=== PATIENT | male | born 1940 | race Caucasian/White ===

== ENCOUNTER 2021-08-05 08:02 | Outpatient (CLI) | payer MEDICARE, BC | END 2021-08-05 23:59 | disposition home or self-care (01) | LOC: LAB 08:02 | PROVIDERS: ATTEND Specialist | DX: Z01.812 Encounter for preprocedural laboratory examination (principal); Z20.822 Contact with and (suspected) exposure to COVID-19 | CPT/HCPCS: C9803; U0003 ==

== ENCOUNTER 2021-08-09 06:50 | Inpatient (IN) | payer MEDICARE, BC ==
[~2021-08-09] VITALS: Ht 172.7 cm; Wt 79.4 kg
--- NOTE | 2021-08-09 07:50 | NUR ---
RN NOTES PATIENT IS IN ROOM, PATIENT CAME IN TO UNIT AMBULATING. A/O X4. NO S/S OF PAIN NOTED AT THIS TIME. ON ROOM AIR, NO DISTRESS OR SHORTNESS OF BREATH NOTED. IV ACCESS R ARM #22G, INTACT AND PATENT, FLUSHING WELL. PATIENT WAS ORIENTED TO ROOM SET UP AND HOW TO USE CALL LIGHT. CONSENTS FOR SURGERY WAS DONE. FALL AND SAFETY MEASURES IN PLACE, BED IN LOW AND LOCK POSITION, CALL LIGHT AND TABLE WITHIN EASY REACH, SIDE RAIL UP X2. WILL CONTINUE TO MONITOR.
[2021-08-09] MEDS ORDERED: POLYMYXIN B SULFATE 500,000 UNITS ONE (08:20)
[2021-08-09] MEDS ORDERED: ANESTHESIA TRAY IN PYXIS 1 EA TRAY MC ONE (08:20)
[2021-08-09] MEDS ORDERED: BUPIVACAINE 0.25% 75 MG/30 ML VIAL ONE (08:21)
[2021-08-09] MEDS ORDERED: LIDOCAINE 0.5%-EPI 1:200,000 50 ML VIAL ONE (08:21)
--- NOTE | 2021-08-09 09:00 | NUR ---
RN NOTES PATIENT IS NOT IN ROOM, PATIENT WAS TAKEN DOWN FOR SURGERY (LEFT TOTAL KNEE ARTHROPLASTY).
[2021-08-09] MEDS ORDERED: MIDAZOLAM HCL 2 MG/2ML VIAL ONE (09:08)
[2021-08-09] MEDS ORDERED: PROPOFOL 100 ML ONE (09:08)
[2021-08-09] MEDS ORDERED: FENTANYL PF 100MCG/2ML AMPUL ONE (09:08)
[2021-08-09] MEDS ORDERED: MAGNESIUM HYDROXIDE 30 ML UDC PO PRN (09:30)
[2021-08-09] MEDS ORDERED: MAG HYDROX/AL HYDROX/SIMETH 30 ML UDC PO PRN (09:30)
[2021-08-09] MEDS ORDERED: diphenhydrAMINE HCL 25 MG CAPSULE PO PRN (09:30)
[2021-08-09] MEDS ORDERED: MENTHOL/CETYLPYRD (CEPACOL) 1 LOZ LOZENGE PO PRN (09:30)
[2021-08-09] MEDS ORDERED: oxyCODONE IR immediate release 5 MG PO PRN (09:30)
[2021-08-09] MEDS ORDERED: TRANEXAMIC ACID 3,000 MG in SODIUM CHLORIDE IRRIG SOLUTION 70 ML IR ONE (10:00)
[2021-08-09] MEDS ORDERED: HYDROMORPHONE 1 MG/1 ML DISP.SYRIN ONE ×2 (11:27→11:50)
[2021-08-09] MEDS ORDERED: ONDANSETRON HCL/PF 4 MG/2 ML VIAL IVP PRN (12:30)
[2021-08-09] MEDS ORDERED: SENNOSIDES 8.6 MG TABLET PO PRN (12:30)
[2021-08-09] MEDS ORDERED: ZOLPIDEM TARTRATE 5 MG TABLET PO PRN (12:30)
[2021-08-09] MEDS ORDERED: BISACODYL SUPP (10 MG) 10 MG/SUPP.RECT SUPP.RECT RC PRN (12:30)
[2021-08-09] MEDS ORDERED: IV LR 1000 ML 1,000 ML IV PRN (12:30)
[2021-08-09] MEDS: oxyCODONE IR immediate release 5 MG PO PRN ×4 (13:57→22:20)
[2021-08-09] MEDS: ONDANSETRON HCL/PF 4 MG/2 ML VIAL IV PRN ×2 (14:34→14:55)
--- NOTE | 2021-08-09 14:55 | NUR ---
RN NOTES PATIENT WAS COMPLAINING OF NAUSEA. ZOFRAN WAS GOING TO BE GIVEN BUT PATIENT REFUSED MEDICATION AT THE LAST MINUTE. ZOFRAN WAS NOT GIVEN. MEDICATION WAS DISCARDED. CHARGE NURSE AWARE.
[2021-08-09] MEDS: HYDROMORPHONE 1 MG/1 ML DISP.SYRIN IM/IV/SC PRN ×2 (15:59→21:00)
[2021-08-09] MEDS ORDERED: DOCUSATE SODIUM 250 MG CAPSULE PO PRN (17:00)
[2021-08-09] MEDS: ANCEF 1 GM/50 ML D5W IV SCH (18:29)
--- NOTE | 2021-08-09 19:49 | NUR ---
RN CLOSING NOTES PATIENT IS AWAKE IN BED RESTING, A/O X4. NO S/S OF PAIN NOTED AT THIS TIME. ON ROOM AIR, NO DISTRESS OR SHORTNESS OF BREATH NOTED. IV ACCESS R FOREARM #22G, INTACT AND PATENT, FLUSHING WELL. PATIENT HAVE VELAZQUEZ CATH, IN PLACE AND DRAINING WELL. FALL AND SAFETY MEASURES IN PLACE, BED ALARM ON, BED IN LOW AND LOCK POSITION, CALL LIGHT AND TABLE WITHIN EASY REACH, SIDE RAIL UP X2. WILL ENDORSE TO PERMIT SPECIALIST.
[2021-08-09 20:00] VITALS: BP 143/78
[2021-08-09] MEDS: TAMSULOSIN 0.4 MG CAP.SR.24H PO SCH (21:02)
[2021-08-09] MEDS: FAMOTIDINE (20 MG) 20 MG TABLET PO SCH (21:02)
[2021-08-09] MEDS: DRONABINOL (2.5 MG) 2.5 MG CAPSULE PO SCH (21:30)
[2021-08-10] MEDS: HYDROMORPHONE 1 MG/1 ML DISP.SYRIN IM/IV/SC PRN ×5 (01:46→11:20)
[2021-08-10] MEDS: ANCEF 1 GM/50 ML D5W IV SCH (02:03)
--- NOTE | 2021-08-10 02:24 | NUR ---
MS RN NOTE PATIENT GIVEN DILAUDID TWICE AND IT IS NOT SHOWING/REGISTERING ON THE COMPUTER. I GOT NADJA RN AND KSENIA BEE FOR WITNESSES. FIRST DOSE OF DILAUDID 0.5 MG WAS ADMINISTERED AT AROUND 2100 AND SECOND DOSE OF DILAUDID 0.5 MG WAS ADMINISTERED AT 0146. BOTH MEDICATIONS WAS SCANNED BUT FOR SOME REASON DOES NOT SHOW UP ON THE ADMINISTRATION HISTORY NOT UNLESS MANUALLY PUT IN.
[2021-08-10 07:21] LABS: HEMOGLOBIN 13.3 g/dL (13.5-17.5)
--- NOTE | 2021-08-10 07:51 | NUR ---
RN CLOSING NOTE REPORT GIVEN TO MICHAEL MCCORMACK FOR CONTINUITY OF CARE.
[2021-08-10 08:00] VITALS: BP 137/80
--- NOTE | 2021-08-10 08:03 | NUR ---
RN OPENING NOTE- PATIENT IS AWAKE IN BED RESTING, A/O X4. PT W HICCUPS. ON ROOM AIR, NO DISTRESS OR SHORTNESS OF BREATH NOTED. IV ACCESS R FOREARM #22G. PATIENT HAS VELAZQUEZ CATH, IN PLACE AND DRAINING WELL. FALL AND SAFETY MEASURES IN PLACE, BED ALARM ON, BED IN LOW AND LOCK POSITION, CALL LIGHT AND TABLE WITHIN EASY REACH, SIDE RAILS UP X2.
[2021-08-10] MEDS: DRONABINOL (2.5 MG) 2.5 MG CAPSULE PO SCH ×2 (08:09→20:26)
--- NOTE | 2021-08-10 08:10 | NUR ---
RN NOTE- DR ROYAL AT BEDSIDE . ORDERED MARINOL 2.5 MG TABLET TO BE GIVEN IMMEDIATELY. DOSE SET FOR 0930. NIGHT TIME DOSE HAD NOT BEEN ADMINISTERED. COMPLYING W INSTRUCTIONS
[2021-08-10] MEDS ORDERED: MAG HYDROX/AL HYDROX/SIMETH 30 ML UDC PO PRN (08:30)
[2021-08-10] MEDS ORDERED: MAGNESIUM HYDROXIDE 30 ML UDC PO PRN (08:30)
[2021-08-10] MEDS ORDERED: Z GUARD REMEDY 4 OZ OINT TP PRN (08:30)
[2021-08-10] MEDS ORDERED: ACETAMINOPHEN 325 MG TABLET PO PRN (08:30)
[2021-08-10] MEDS ORDERED: ONDANSETRON HCL/PF 4 MG/2 ML VIAL IVP PRN (08:30)
[2021-08-10] MEDS: DOCUSATE SODIUM 100 MG CAPSULE PO SCH ×2 (09:39→16:44)
[2021-08-10] MEDS: oxyCODONE IR immediate release 5 MG PO PRN ×4 (09:39→20:25)
[2021-08-10] MEDS: ASPIRIN 325 MG TABLET PO SCH (09:39)
[2021-08-10] MEDS: FAMOTIDINE (20 MG) 20 MG TABLET PO SCH ×2 (09:39→20:26)
--- NOTE | 2021-08-10 10:40 | NUR ---
RN NOTE- FLOEY CATHETER DC'D AT THIS TIME. MONITOR FOR UA OUTPUT
--- NOTE | 2021-08-10 11:28 | NUR ---
RN NOTE- WENT TO ADMINISTER IV DILAUDID 0.5 MG FOR PAIN. PATIENTS IV SITE COMPROMISED. NOTIFIED DR ROYAL AND REQUESTED POSS CHANGE TO PO RX SINCE PT NOVEMBER DC TODAY. DILAUDID 0.5 MG WASTED IN SHARPS Toni CASTRO RN WITNESS.
--- NOTE | 2021-08-10 15:32 | NUR ---
RN NOTE- PT W NO UA OUTPUT. INFORMED HE NEEDS TO VOID BEFORE HE CAN BE DC. WILL GIVE A BIT MORE TIME. PT TOOK FLOMAX LAST PM . CONTINUING TO MONITOR.
[2021-08-10 16:00] VITALS: BP 125/67
--- NOTE | 2021-08-10 16:45 | NUR ---
RN NOTE- PT VOIDED IN URINAL THOUGH ONLY ABOUT 30 CC. BLADDER SCAN COMPLETED BUT HE IS NOT FOUND TO BE RETAINING UA. ENCOURAGED PO FLUIDS
--- NOTE | 2021-08-10 18:52 | NUR ---
RN NOTE- PT VOIDED 50 CC IN URINAL.
--- NOTE | 2021-08-10 18:53 | NUR ---
RN CLOSING NOTE- PT AOX4 IN ROOM,. CURRENT ANALGESICS KEEPING HIM COMFORTABLE, AMBULATES TO BR W FWW STEADY. PO INTAKE FAIR, ENCOURAGING FLUIDS, MONITOR UA OUTPUT, ENDORSE TO NOC SHIFT, SIDE RAILS UP, BED LOCKED CALL LIGHT IN REACH. MONITOR / ASSIST
--- NOTE | 2021-08-10 18:54 | NUR ---
MS RN OPENING NOTE: RECEIVED REPORT. PATIENT IS COMMUNICATIVE, A&O X4 IN NAD AND VSS AT THIS TIME. CONTINUING TO MONITOR PATIENT'S URINARY OUTPUT S/P F/C D/C. EASILY PALPABLE DP PULSES BILATERALLY. BED IN LOW, LOCKED POSITION. SIDE RAILS UP X2. PATIENT DEMONSTRATES ABILITY TO USE CALL LIGHT AND VERBALIZE NEEDS EFFECTIVELY. CALL LIGHT AND FREQUENTLY USED ITEMS WITHIN REACH.
--- NOTE | 2021-08-10 19:01 | NUR ---
RN NOTE- BLADDER SCAN COMPLETED W NOC SHIFT RN. 400 UA NOTED. SHE WILL MONITOR HIS OUTPUT ON HER SHIFT AND INSERT VELAZQUEZ NEEDED,.
[2021-08-10 20:00] VITALS: BP 122/58
[2021-08-10] MEDS: TAMSULOSIN 0.4 MG CAP.SR.24H PO SCH (20:25)
[2021-08-11] MEDS: oxyCODONE IR immediate release 5 MG PO PRN ×2 (00:03→06:11)
--- NOTE | 2021-08-11 01:18 | NUR ---
MS RN NOTE: 175ML OUTPUT TO URINAL CLEAR TEA COLORED URINE. PATIENT STATES THIS IS NORMAL FOR HIM. ADAMANTLY REFUSES F/C. I DISCUSSED THE RISKS ASSOCIATED WITH BLADDER RETENTION INCLUDING UTI, BLADDER AND KIDNEY DAMAGE. PATIENT ACKNOWLEDGES THESE RISKS AND REITERATES REFUSAL FOR F/C REINSERTION.
--- NOTE | 2021-08-11 05:57 | NUR ---
MS RN CLOSING NOTE: PATIENT MAINTAINED ADEQUATE OUTPUT THROUGHOUT THE SHIFT. TOTALLING 425ML IN ADDITION TO VOIDS UP TO BR X2. PATIENT IS STEADY USING FWW. MENTATION TO BASELINE. EASILY PALPABLE DP PULSES AND CAP REFILL < 3 SECONDS. DENIES NUMBNESS/TINGLING TO LLE. LLE SECURED WITH IMMOBILIZER. DRESSING TO INCISION SITE C/D/I. NO IV ACCESS, MD AWARE. PATIENT'S PAIN WELL-CONTROLLED WITH PRN OXYCODONE 10MG PER PRN ORDER AND SCHEDULED DORNABINOL (SEE EMAR). SIDE RAILS UP X2, BED IN LOW/LOCKED POSITION. PATIENT DEMONSTRATES ABILITY TO USE CALL LIGHT AND VERBALIZE NEEDS EFFECTIVELY. CALL LIGHT AND FREQUENTLY USED ITEMS WITHIN REACH.
[2021-08-11 06:48] LABS: BASOPHILS % (AUTO) 0.2 % (0.0-2.0); EOSINOPHILS % (AUTO) 0.1 % (0.0-6.0); HEMATOCRIT 38 % (39-51); HEMOGLOBIN 12.4 g/dL (13.5-17.5); LYMPHOCYTES # (AUTO) 0.7 K/uL (0.8-4.8); LYMPHOCYTES % (AUTO) 5.6 % (20.0-44.0); MEAN CORPUSCULAR HGB CONC 33 g/dl (31.0-36.0); MEAN CORPUSCULAR VOLUME 99 fL (80-96); MONOCYTES # (AUTO) 1.4 K/uL (0.1-1.30); MONOCYTES % (AUTO) 11.4 % (2.0-12.0); NEUTROPHILS % (AUTO) 82.7 % (43.0-81.0); PLATELET COUNT (AUTO) 141 K/uL (150-450); RED BLOOD CELL COUNT(AUTO) 3.78 MIL/uL (4.5-6.0); WHITE BLOOD COUNT (AUTO) 12.1 K/uL (4.3-11.0)
--- NOTE | 2021-08-11 07:34 | NUR ---
RN OPENING NOTE- PATIENT IS AWAKE IN BED RESTING, A/O X4. ON ROOM AIR, NO DISTRESS OR SHORTNESS OF BREATH NOTED. PT VOIDING AND BMS W REGULARITY. DR ROYAL AT BEDSIDE. PT CAN BE DC TODAY/. FALL AND SAFETY MEASURES IN PLACE, BED ALARM ON, BED IN LOW AND LOCK POSITION, CALL LIGHT AND TABLE WITHIN EASY REACH, SIDE RAILS UP X2.
[2021-08-11 07:51] LABS: CARBON DIOXIDE 24 mmol/L (21-32); CHLORIDE 95 mmol/L (98-107); CREATININE 1.4 mg/dL (0.6-1.3); GLUCOSE 109 mg/dL (74-106); MAGNESIUM 1.9 mg/dL (1.8-2.4); PHOSPHORUS 2.8 mg/dL (2.5-4.9); POTASSIUM 3.9 mmol/L (3.5-5.1); SODIUM SERUM 132 mmol/L (136-145); UREA NITROGEN, BLOOD 18 mg/dL (7-18)
[2021-08-11 08:00] VITALS: BP 126/88
[2021-08-11] MEDS ORDERED: BETHANECHOL CHLORIDE (25 MG) 25 MG TABLET PO ONE (08:00)
[2021-08-11] MEDS ORDERED: ALFU10TA10 PO (08:39)
[2021-08-11] MEDS ORDERED: FLUT16SP BNOSTRILS (08:39)
[2021-08-11] MEDS ORDERED: LEVO100T9 PO (08:39)
[2021-08-11] MEDS ORDERED: ALLO100T PO (08:39)
[2021-08-11] MEDS ORDERED: INDO50CA92 PO (08:39)
[2021-08-11] MEDS ORDERED: SIMV10TA98 PO (08:39)
[2021-08-11] MEDS ORDERED: FLUO60SO TP (08:39)
[2021-08-11] MEDS ORDERED: FINA5TAB11 PO (08:39)
[2021-08-11] MEDS ORDERED: [UNRECOGNIZED DRUG - OTHER] PO (08:39)
[2021-08-11] MEDS ORDERED: [UNRECOGNIZED DRUG - OTHER] PO (08:39)
[2021-08-11] MEDS ORDERED: CICL6.6S5 TP (08:39)
[2021-08-11] MEDS ORDERED: CYAN-51 PO (08:39)
[2021-08-11] MEDS ORDERED: CHOL100062 PO (08:39)
[2021-08-11] MEDS ORDERED: LIOT5TAB11 PO (08:39)
[2021-08-11] MEDS: ASPIRIN 325 MG TABLET PO SCH (09:05)
[2021-08-11] MEDS: FAMOTIDINE (20 MG) 20 MG TABLET PO SCH (09:05)
[2021-08-11] MEDS: DRONABINOL (2.5 MG) 2.5 MG CAPSULE PO SCH (09:05)
[2021-08-11] MEDS: DOCUSATE SODIUM 100 MG CAPSULE PO SCH (09:05)
--- NOTE | 2021-08-11 09:21 | NUR ---
RN NOTE-PT WBC 12.1 AND NOW HAS TEMP 99.4. PT AOX4, AMBULATING TO BR, VOIDING, PAIN MANAGED W CURRENT RX. ANTICIPATING DC. WILL MONITOR. MADE AWARE
--- NOTE | 2021-08-11 10:00 | NUR ---
RN NOTE- DRESSING CHANGE DONE TO LT KNEE INCISION. KVNG INTACT, NO DEHISCENCE, NO ODOR, NO DRAINAGE, NO PURULENCE. COVERED W DRY STERILE DRESSING , REWRAPPED PER MD INSTRUCTIONS
--- NOTE | 2021-08-11 14:50 | NUR ---
HEADWAITRESS NOTE- PT DC TO HOME AT THIS TIME INTO CARE OF FAMILY. VS STABLE, PT IN NO DISTRESS, NO PAIN NOTED, AMBULATING W FWW. VOIDING IN BR. NEEDS ATTENDED. AFTERCARE AND MD ORDERS REVIEWED AND UNDERSTOOD. ASSISTED TO CAR IN [place], ID [id number] REMOVED. AIDED IN GETTING IN CAR. ALL BELONGINGS W PT.
== END 2021-08-11 15:45 | disposition home or self-care (01) | DRG 470 ==
LOC: MED 07:21 → EDSTATUS 09:30
PROVIDERS: ADMIT Internal Medicine; ATTEND Internal Medicine
PROC: 0SRD0J9 Replacement of Left Knee Joint with Synthetic Substitute, Cemented, Open Approach (ICD-10-PCS; principal; 2021-08-09)
DX: M17.12 Unilateral primary osteoarthritis, left knee (principal); Z20.822 Contact with and (suspected) exposure to COVID-19; E03.9 Hypothyroidism, unspecified; N40.0 Benign prostatic hyperplasia without lower urinary tract symptoms; M10.9 Gout, unspecified; L30.9 Dermatitis, unspecified; F12.90 Cannabis use, unspecified, uncomplicated
CPT/HCPCS: 36415; 80048-TC; 83735-TC; 84100-TC; 85025-TC; 85027-TC; 88305-TC; 88311-TC; 97110-TC; 97112-TC; 97116-TC; 97530-TC; A4217; G0378; J0690; J1170; J2250; J2405; J3010; J3490; J7060; J7120; Q0167